=== PATIENT | female | born 1955 | race Hispanic/Latino ===

== ENCOUNTER 2018-12-01 12:24 | Emergency (ER) | payer BC, MEDICARE ==
[2018-12-01] MEDS ORDERED: TESSALON PERLE100 MG PO (13:18)
[2018-12-01 14:09] VITALS: BP 128/71
== END 2018-12-01 14:12 | disposition home or self-care (01) ==
LOC: ER 12:24
DX: R05 Cough (principal); J00 Acute nasopharyngitis [common cold]; I10 Essential (primary) hypertension; E11.9 Type 2 diabetes mellitus without complications; E78.5 Hyperlipidemia, unspecified; A80.9 Acute poliomyelitis, unspecified; K21.9 Gastro-esophageal reflux disease without esophagitis; Z86.73 Personal history of transient ischemic attack (TIA), and cerebral infarction without residual deficits
CPT/HCPCS: 99282

== ENCOUNTER 2020-03-28 17:41 | Observation (INO) | payer MEDICARE, OTHER ==
[~2020-03-28] VITALS: Ht 167.6 cm; Wt 72.6 kg
[~2020-03-28 17:41] MED LIST: TESSALON PERLE100 MG PO
[2020-03-28 18:40] LABS: BASOPHILS % 0.4 % (0.0-1.0); EOSINOPHILS # (AUTO) 0.1 (0.0-0.4); EOSINOPHILS % 0.9 % (0.0-6.0); HEMATOCRIT 41.8 % (34.2-44.1); HEMOGLOBIN 13.7 g/dL (12.0-16.0); LYMPHOCYTES # (AUTO) 2.4 (1.0-3.2); LYMPHOCYTES % 25.5 % (18.0-39.1); MEAN CORPUSCULAR HEMOGLOBIN 28.3 pg (28-32); MEAN CORPUSCULAR HGB CONC 32.8 g/dL (31-35); MEAN CORPUSCULAR VOLUME 86.4 fL (81-99); MONOCYTES # (AUTO) 0.7 (0.2-0.8); MONOCYTES % 6.9 % (4.4-11.3); NEUTROPHILS # (AUTO) 6.3 (2.1-6.9); NEUTROPHILS % 65.8 % (38.7-80.0); PLATELET COUNT 409 x10e3/uL (140-360); RED BLOOD COUNT 4.84 x10e6/uL (3.6-5.1); RED CELL DISTRIBUTION WIDTH 13.2 % (11.7-14.4)
[2020-03-28 18:48] LABS: INR 0.83; PROTHROMBIN TIME 11.9 seconds (11.9-14.5)
[2020-03-28 18:49] LABS: PARTIAL THROMBOPLASTIN TIME 26.8 seconds (23.8-35.5)
[2020-03-28 18:56] LABS: ALANINE AMINOTRANSFERASE 19 IU/L (0-55); ALBUMIN 4.1 g/dL (3.5-5.0); ALKALINE PHOSPHATASE 96 IU/L (40-150); ANION GAP 16.7 mmol/L (8-16); BLOOD UREA NITROGEN 15 mg/dL (7-26); BUN/CREATININE RATIO 22 (6-25); CARBON DIOXIDE 25 mmol/L (22-29); CHLORIDE 100 mmol/L (98-107); CREATINE KINASE 54 IU/L (29-168); CREATININE, SERUM 0.67 mg/dL (0.57-1.11); EST GLOMERULAR FILTRATION RATE > 60 ML/MIN (60-); GLUCOSE 114 mg/dL (74-118); POTASSIUM 3.7 mmol/L (3.5-5.1); SODIUM 138 mmol/L (136-145)
--- NOTE | 2020-03-28 19:31 | Emergency Department Note ---
History of Present Illnes History of Present Illness Chief Complaint: Neurological History of Present Illness This is a 65 year old female PER PT FELT WEAK AND FELL INTO HIS ARMS NO LOC WENT TO SEE PCP WHO SAID HE THINKS SHE MAY HAVE HAD A MINI STROKE AND SENT HERE FOR FURTHER EVAL STATES HER WHOLE BODY WAS WEAK DENIES FACIAL DROOP PT A&O X 3. pt and are describing a near syncope event . Historian: Patient Arrival Mode: Car Onset (how long ago): hour(s) (12) Location: all over Quality: almost passed out Radiation: Reports non-radiation Severity: moderate Onset quality: sudden Duration (how long): hour(s) (12) Progression: resolved Chronicity: new Context: Denies recent illness Relieving factors: none Exacerbating factors: none Associated symptoms: Reports denies other symptoms Treatments prior to arrival: none Past Medical/Family History Physician Review I have reviewed the patient's past medical and family history. Any updates have been documented here. Past Medical History Recent Fever: No Clinical Suspicion of Infectio: No New/Unexplained Change in Ment: No Past Medical History: Hypertension, Diabetes, CVA, GERD, Hyperlipedemia Other Medical History: POLIO Past Surgical History: Hysterectomy Social History Smoking Cessation: Never Smoker Counseling Performed: No Alcohol Use: None Any Illegal Drug Use: No Other Last Tetanus: UNKNOWN Any Pre-Existing Lines (PICC,: No Review of Systems Review of Systems Constitutional: Reports no symptoms EENTM: Reports no symptoms Cardiovascular: Reports no symptoms Respiratory: Reports no symptoms Gastrointestinal: Reports no symptoms Genitourinary: Reports no symptoms Musculoskeletal: Reports no symptoms Integumentary: Reports no symptoms Neurological: Reports as per HPI Psychological: Reports no symptoms Endocrine: Reports no symptoms Hematological/Lymphatic: Reports no symptoms Physical Exam Related Data Allergies: Coded Allergies: No Known Allergies (Unverified , 12/01/18) Triage Vital Signs Vital Signs Date Time Temp Pulse Resp B/P (MAP) Pulse Ox O2 Delivery O2 Flow Rate FiO2 03/28/20 18:08 98.7 102 18 148/76 97 Room Air Vital signs reviewed: Yes Physical Exam CONSTITUTIONAL Constitutional: Present well-developed, Present well-nourished HENT HENT: Present normocephalic, Present atraumatic, Present oropharynx clear/moist, Present nose normal HENT L/R: Present left ext ear normal, Present right ext ear normal EYES Eyes: Reports PERRL, Reports conjunctivae normal NECK Neck: Present ROM normal PULMONARY Pulmonary: Present effort normal, Present breath sounds normal CARDIOVASCULAR Cardiovascular: Present regular rhythm, Present heart sounds normal, Present capillary refill normal, Present normal rate GASTROINTESTINAL Abdominal: Present soft, Present nontender, Present bowel sounds normal GENITOURINARY Genitourinary: Present exam deferred SKIN Skin: Present warm, Present dry MUSCULOSKELETAL Musculoskeletal: Present ROM normal NEUROLOGICAL Neurological: Present alert, Present oriented x 3, Present no gross motor or sensory deficits PSYCHOLOGICAL Psychological: Present mood/affect normal, Present judgement normal Results Laboratory Result Diagram: 03/28/20 18103/[id number]/201818 Laboratory Laboratory Tests Test 03/28/20 18:19 White Blood Count 9.52 x10e3/uL (4.8-10.8) Red Blood Count 4.84 x10e6/uL (3.6-5.1) Hemoglobin 13.7 g/dL (12.0-16.0) Hematocrit 41.8 % (34.2-44.1) Mean Corpuscular Volume 86.4 fL (81-99) Mean Corpuscular Hemoglobin 28.3 pg (28-32) Mean Corpuscular Hemoglobin Concent 32.8 g/dL (31-35) Red Cell Distribution Width 13.2 % (11.7-14.4) Platelet Count 409 x10e3/uL (140-360) Neutrophils (%) (Auto) 65.8 % (38.7-80.0) Lymphocytes (%) (Auto) 25.5 % (18.0-39.1) Monocytes (%) (Auto) 6.9 % (4.4-11.3) Eosinophils (%) (Auto) 0.9 % (0.0-6.0) Basophils (%) (Auto) 0.4 % (0.0-1.0) Neutrophils # (Auto) 6.3 (2.1-6.9) Lymphocytes # (Auto) 2.4 (1.0-3.2) Monocytes # (Auto) 0.7 (0.2-0.8) Eosinophils # (Auto) 0.1 (0.0-0.4) Basophils # (Auto) 0.0 (0.0-0.1) Absolute Immature Granulocyte (auto 0.05 x10e3/uL (0-0.1) Prothrombin Time 11.9 seconds (11.9-14.5) Prothromb Time International Ratio 0.83 Activated Partial Thromboplast Time 26.8 seconds (23.8-35.5) Sodium Level 138 mmol/L (136-145) Potassium Level 3.7 mmol/L (3.5-5.1) Chloride Level 100 mmol/L (98-107) Carbon Dioxide Level 25 mmol/L (22-29) Anion Gap 16.7 mmol/L (8-16) Blood Urea Nitrogen 15 mg/dL (7-26) Creatinine 0.67 mg/dL (0.57-1.11) Estimat Glomerular Filtration Rate > 60 ML/MIN (60-) BUN/Creatinine Ratio 22 (6-25) Glucose Level 114 mg/dL (74-118) Calcium Level 10.0 mg/dL (8.4-10.2) Total Bilirubin 0.5 mg/dL (0.2-1.2) Aspartate Amino Transf (AST/SGOT) 15 IU/L (5-34) Alanine Aminotransferase (ALT/SGPT) 19 IU/L (0-55) Alkaline Phosphatase 96 IU/L (40-150) Creatine Kinase 54 IU/L (29-168) Creatine Kinase MB 0.40 ng/mL (0-5.0) Troponin I 0.002 ng/mL (0-0.300) Total Protein 8.3 g/dL (6.5-8.1) Albumin 4.1 g/dL (3.5-5.0) Globulin 4.2 g/dL (2.3-3.5) Albumin/Globulin Ratio 1.0 (0.8-2.0) Laboratory Tests Test 03/28/20 18:19 White Blood Count 9.52 x10e3/uL (4.8-10.8) Red Blood Count 4.84 x10e6/uL (3.6-5.1) Hemoglobin 13.7 g/dL (12.0-16.0) Hematocrit 41.8 % (34.2-44.1) Mean Corpuscular Volume 86.4 fL (81-99) Mean Corpuscular Hemoglobin 28.3 pg (28-32) Mean Corpuscular Hemoglobin Concent 32.8 g/dL (31-35) Red Cell Distribution Width 13.2 % (11.7-14.4) Platelet Count 409 x10e3/uL (140-360) Neutrophils (%) (Auto) 65.8 % (38.7-80.0) Lymphocytes (%) (Auto) 25.5 % (18.0-39.1) Monocytes (%) (Auto) 6.9 % (4.4-11.3) Eosinophils (%) (Auto) 0.9 % (0.0-6.0) Basophils (%) (Auto) 0.4 % (0.0-1.0) Neutrophils # (Auto) 6.3 (2.1-6.9) Lymphocytes # (Auto) 2.4 (1.0-3.2) Monocytes # (Auto) 0.7 (0.2-0.8) Eosinophils # (Auto) 0.1 (0.0-0.4) Basophils # (Auto) 0.0 (0.0-0.1) Absolute Immature Granulocyte (auto 0.05 x10e3/uL (0-0.1) Prothrombin Time 11.9 seconds (11.9-14.5) Prothromb Time International Ratio 0.83 Activated Partial Thromboplast Time 26.8 seconds (23.8-35.5) Sodium Level 138 mmol/L (136-145) Potassium Level 3.7 mmol/L (3.5-5.1) Chloride Level 100 mmol/L (98-107) Carbon Dioxide Level 25 mmol/L (22-29) Anion Gap 16.7 mmol/L (8-16) Blood Urea Nitrogen 15 mg/dL (7-26) Creatinine 0.67 mg/dL (0.57-1.11) Estimat Glomerular Filtration Rate > 60 ML/MIN (60-) BUN/Creatinine Ratio 22 (6-25) Glucose Level 114 mg/dL (74-118) Calcium Level 10.0 mg/dL (8.4-10.2) Total Bilirubin 0.5 mg/dL (0.2-1.2) Aspartate Amino Transf (AST/SGOT) 15 IU/L (5-34) Alanine Aminotransferase (ALT/SGPT) 19 IU/L (0-55) Alkaline Phosphatase 96 IU/L (40-150) Creatine Kinase 54 IU/L (29-168) Creatine Kinase MB 0.40 ng/mL (0-5.0) Troponin I 0.002 ng/mL (0-0.300) Total Protein 8.3 g/dL (6.5-8.1) Albumin 4.1 g/dL (3.5-5.0) Globulin 4.2 g/dL (2.3-3.5) Albumin/Globulin Ratio 1.0 (0.8-2.0) Lab results reviewed: Yes Imaging Imaging results reviewed: Yes Impressions Procedure: [id number] CT/CT BRAIN WO Exam Date: 03/28/20 Exam Time: 1914 REPORT STATUS: Signed History:Weakness Comparison studies: None Technique: Axial images were obtained from the skull base to the vertex. Coronal and sagittal images reconstructed from the axial data. Dose modulation, iterative reconstruction, and/or weight based adjustment of the mA/kV was utilized to reduce the radiation dose to as low as reasonably achievable. Intravenous contrast: None Findings: Scalp/skull: No abnormalities. Extra-axial spaces: No masses. No fluid collections. Brain sulci: Mildly prominent. Ventricles: Mild compensatory dilatation. No hydrocephalus. Parenchyma: Subtle hypodensities in the right frontal white matter are microvascular ischemic changes. No masses, hemorrhage, acute or chronic cortical vascular insults. Sellar/suprasellar region: No abnormalities. Craniocervical junction: Patent foramen magnum. No Chiari one malformation. Incidental findings: Subtle atherosclerotic calcifications in the carotid siphons . Impression: 1. No acute abnormalities. 2. Incidental mild right frontal white matter microvascular ischemic changes. Signed by: Dr. Ata Hdz M.D. on 03/28/2020 8:01 PM CXR I REVIEWED NO ACUTE ABNORMALITY Procedures 12 Lead ECG Interpretation ECG Interpretation : ECG: ECG 1 Manager Portable: Interpreted by ED physician Date: Mar 28, 2020 Time: 19:00 Rhythm: sinus rhythm Rate: normal BPM: 87 QRS axis: normal ST segments normal: Yes T waves normal: Yes Clinical Impression: non-specific ECG Additional Comments low voltage qrs Assessment & Plan Medical Decision Making MDM pt had a near syncope event this morning cbc, cmp, cardiac enzymes, ekg, cxr, ct brain ordered to eval for myocardial infarction, arrhythmia, electrolyte abnormality, intrathoracic abnormality. I SPOKE WITH DR TAM, PL[facility] IN [facility], ORDER ECHO AND CAROTID DOPPLERS FOR AM Reassessment Reassessment time: 20:58 Reassessment PT DOING WELL, NO SYMPTOMS AT THIS TIME, I REVIEWED LABS AND RADIOLOGY RESULTS WITH PT Assessment & Plan Final Impression: (1) Near syncope Depart Disposition: ADMITTED Last Vital Signs Date Time Temp Pulse Resp B/P (MAP) Pulse Ox O2 Delivery O2 Flow Rate FiO2 03/28/20 18:45 81 16 143/76 100 03/28/20 18:08 98.7 Room Air Home Meds Active Scripts Benzonatate (TESSALON PERLE) 100 Mg Capsule, 100 MG PO TID PRN for COUGH, #30 MG Prov:CHRISTIN COLEMAN MICA MINER 12/01/18 Reported Medications Metformin Hcl (METFORMIN HCL) 500 Mg Tablet, 1000 MG PO BID, #60 TAB 03/28/20 Omeprazole (OMEPRAZOLE) 40 Mg Capsule.dr, 40 MG PO DAILY 03/28/20 Hydrochlorothiazide (HYDROCHLOROTHIAZIDE) 12.5 Mg Tablet, 1 TAB PO DAILY 03/28/20 Irbesartan (IRBESARTAN) 150 Mg Tablet, 300 MG PO DAILY, #30 TAB 03/28/20 Verapamil Hcl (VERAPAMIL ER) 120 Mg Cap24h.pel, 120 MG PO BID 03/28/20 ASIA VARELA MD Mar 28, 2020 19:31
--- NOTE | 2020-03-28 20:05 | Diagnostic Imaging Report ---
History:Weakness Comparison studies: None Technique: Axial images were obtained from the skull base to the vertex. Coronal and sagittal images reconstructed from the axial data. Dose modulation, iterative reconstruction, and/or weight based adjustment of the mA/kV was utilized to reduce the radiation dose to as low as reasonably achievable. Intravenous contrast: None Findings: Scalp/skull: No abnormalities. Extra-axial spaces: No masses. No fluid collections. Brain sulci: Mildly prominent. Ventricles: Mild compensatory dilatation. No hydrocephalus. Parenchyma: Subtle hypodensities in the right frontal white matter are microvascular ischemic changes. No masses, hemorrhage, acute or chronic cortical vascular insults. Sellar/suprasellar region: No abnormalities. Craniocervical junction: Patent foramen magnum. No Chiari one malformation. Incidental findings: Subtle atherosclerotic calcifications in the carotid siphons . Impression: 1. No acute abnormalities. 2. Incidental mild right frontal white matter microvascular ischemic changes. Signed by: Dr. Ata Hdz M.D. on 03/28/2020 8:01 PM
[2020-03-28] MEDS ORDERED: IRBESARTAN150 MG PO (20:06)
[2020-03-28] MEDS ORDERED: VERAPAMIL ER120 MG PO (20:06)
[2020-03-28] MEDS ORDERED: HYDROCHLOROTH12.5 MG PO (20:06)
[2020-03-28] MEDS ORDERED: OMEPRAZOLE40 MG PO (20:06)
[2020-03-28] MEDS ORDERED: METFORMIN HCL500 MG PO (20:06)
--- NOTE | 2020-03-28 21:02 | Diagnostic Imaging Report ---
EXAM: CHEST SINGLE (PORTABLE), Weight-bearing AP, Oblique and Lateral views DATE: 03/28/2020 7:15 PM INDICATION: Near syncopal episode COMPARISON: None FINDINGS: Support devices: None. Lungs/pleura: No focal consolidation, pleural effusion or pneumothorax. There is bibasilar atelectasis, right more left. Cardiac and mediastinum: Within normal limits. IMPRESSION: No radiographic evidence of an acute cardiopulmonary process. The image was reviewed by Iam Guo MD. Signed by: Iam Guo MD on 03/28/2020 8:58 PM
[2020-03-28] MEDS ORDERED: SODIUM CHLORIDE FLUSH 10 ML SYR INJ PRN (21:15)
[2020-03-29] VITALS (9 sets, daily range): BP systolic 110–145; BP diastolic 68–88
[2020-03-29] MEDS ORDERED: DECARA1250 MCG PO (01:46)
[2020-03-29] MEDS ORDERED: LUMIGAN2.5 M1 OU (01:46)
--- NOTE | 2020-03-29 07:10 | NUR ---
RCD PT AT BED PT IS ALERT AND ORIENTED PT RESTING ON BED IV PATENT BY SALINE FLUSH BED LOW AND LOCKED CALL LIGHT IN REACH
[2020-03-29 07:13] LABS: CREATINE KINASE 50 IU/L (29-168)
[2020-03-29 15:00] LABS: CREATINE KINASE 71 IU/L (29-168)
--- NOTE | 2020-03-29 19:27 | NUR ---
PT RESTING ON BED BED SIDE REPORT GIVEN TO ONCOMING NURSE
[2020-03-29] MEDS ORDERED: DEXTROSE 50% SYRINGE 50 ML IV PRN (20:00)
[2020-03-29] MEDS ORDERED: BENZONATATE 100 MG CAP PO PRN (20:00)
[2020-03-29] MEDS ORDERED: HYDRALAZINE HCL 20 MG/ML VIAL IV PRN (20:15)
[2020-03-29] MEDS: SODIUM CHLORIDE 0.9% 1000ML 1,000 ML IV SCH (20:30)
[2020-03-30] VITALS (13 sets, daily range): BP systolic 97–132; BP diastolic 73–89
--- NOTE | 2020-03-30 02:38 | History and Physical ---
PRIMARY CARE DOCTOR: Monroe French MD [facility] DOCTOR: Dr. Kris Eldridge. This is coverage for Dr. Eldridge. HISTORY OF PRESENT ILLNESS: Ms. Valiente is a pleasant 65-year-old female with presyncope. The patient was feeling weak. The patient fell into 's arms. There is no loss of consciousness. The patient's PCP saw the patient, but was concerned, could not rule out a stroke; therefore, the patient was sent to the hospital. The patient remains slightly weak yesterday, but today is feeling a little bit better. The patient was admitted. EKG mostly unremarkable. Head CT unremarkable. Chest x-ray unremarkable. PAST MEDICAL HISTORY: Hypertension, diabetes, stroke, GERD, hyperlipidemia, polio. MEDICATIONS: Medication list reviewed per the chart record. ALLERGIES: NO KNOWN DRUG ALLERGIES. SOCIAL HISTORY: No smoking. No drinking. No drugs. From [place]. Good social support here in [facility]. FAMILY HISTORY: Noncontributory to this condition. REVIEW OF SYSTEMS: GENERAL: No weight changes. OPHTHALMOLOGIC: No double vision. ENT: No dry mouth. ENDOCRINE: No known thyroid disease. PULMONARY: No asthma. CARDIAC: No heart attack. GI: No constipation. : No blood in urine. DERMATOLOGIC: No rash. MUSCULOSKELETAL: No rheumatologic disorder known. PSYCHIATRIC: No depression. PHYSICAL EXAMINATION: VITAL SIGNS: Afebrile, vital signs noted and reviewed per the chart record. GENERAL: In no acute distress. Alert and calm in bed. HEENT: Normocephalic and atraumatic. NECK: Supple. Throat midline. LUNGS: Bilateral air entry, clear. CARDIOVASCULAR: S1, S2. No murmurs, rubs, or gallops. ABDOMEN: Soft and nontender. EXTREMITIES: No clubbing. No cyanosis. There is no edema. INTEGUMENT: No rash. No purpura. LABORATORY DATA: 9 white count, 409 platelets. 3.7 potassium, 0.67 creatinine. 114 glucose. Coronavirus-19 test still pending. IMPRESSION AND PLAN: 1. Presyncope. 2. History of cerebrovascular accident. 3. Diabetes. 4. Hypertension. 5. Gastroesophageal reflux disease. 6. Hyperlipidemia. 7. History of polio. Continue telemetry monitoring. Follow up echo results. Follow up ultrasound carotid report. We will get Cardiology evaluation just in case the patient has abnormal finding to expedite the workup. The patient has coronavirus-19 test that is pending at this time. We will await that result. Give supportive therapy. Thank you very much, Dr. French, for allowing Dr. Eldridge and me a chance to participate in the care of Ms. Valiente. Please call for questions. MD CESAR Garcia/KEN /[id number]
--- NOTE | 2020-03-30 07:00 | NUR ---
RCD PT AT BED PT IS ALERT AND ORIENTED PT RESTING ON BED IV PATENT BY SALINE FLUSH BED LOW AND LOCKED CALL LIGHT IN REACH
[2020-03-30] MEDS: PANTOPRAZOLE SOD 40 MG TABEC PO SCH (07:30)
[2020-03-30] MEDS: METFORMIN HCL 500 MG TAB PO SCH ×2 (08:00→17:00)
[2020-03-30] MEDS ORDERED: PANTOPRAZOLE SOD 40 MG TABEC PO SCH (09:00)
[2020-03-30] MEDS: IRBESARTAN 150 MG TAB PO SCH (09:00)
[2020-03-30] MEDS: HYDROCHLOROTHIAZIDE 25 MG TAB PO SCH (09:00)
--- NOTE | 2020-03-30 10:35 | NUR ---
AC TO FAMILY PT HAVING CLUSTROPHOBIA PAGED AND NOTIFIED DR JAUREGUI GOT NEW ORDERS
[2020-03-30] MEDS ORDERED: LORAZEPAM INJ 2 MG/ML VIAL IV NR (10:45)
--- NOTE | 2020-03-30 11:00 | NUR ---
BEFORE GOING TO MRI [place] [id number] EXPLAINED EVERYTHING TO THE PT CLAUSTROPHOBIA AND MEDICATIONS SHE SAID SHE UNDERSTOOD
--- NOTE | 2020-03-30 11:09 | NUR ---
PT WENT TO PROCEDURE IN SAFE CONDITION
--- NOTE | 2020-03-30 12:57 | Diagnostic Imaging Report ---
Examination: MRI BRAIN WO CONTRAST History: Near syncope. Possible stroke. Comparison studies: Head CT dated March 28, 2020. Technique: Sagittal T2; axial DWI, FLAIR, GRE or SWI, T1, Coronal FLAIR. Intravenous contrast: None Findings: Scalp: No abnormal signal. No masses. Bone marrow: Normal in signal intensity. Brain volume: Adequate for age. No volume loss. Ventricles: Normal in size and configuration. No hydrocephalus. Extra-axial spaces: No abnormalities. Parenchyma: There are patchy areas of T2/FLAIR hyperintensity in the right periventricular white matter, nonspecific. No masses, hemorrhage, or acute vascular insults. Suprasellar and sellar region: No abnormalities. Craniocervical junction: No abnormalities. The foramen magnum is patent. No Chiari malformations. Vessels: Normal flow-voids in the arteries and sinuses. Additional findings:None. IMPRESSION: No acute intracranial abnormalities. Mild chronic microvascular ischemic change, Signed by: Dr. Laisha Maharaj M.D. on 03/30/2020 12:53 PM
[2020-03-30] MEDS: SODIUM CHLORIDE 0.9% 1000ML 1,000 ML IV SCH (14:30)
--- NOTE | 2020-03-30 18:05 | Consultation ---
DATE OF CONSULTATION: 03/30/2020 Cardiology Consultation CONSULTING PHYSICIAN: Sal Moses MD, Interventional Cardiology. REASON FOR CONSULTATION: Presyncope. HISTORY OF PRESENT ILLNESS: Ms. Valiente is a 65-year-old woman with history of hypertension and diabetes mellitus, who presents with complaints of lightheadedness after standing up, occurring several occasions this week. Episodes became more severe with family member having to assist the patient down to lying position. She did not lose consciousness. Report headaches, palpitations, chest pain, shortness of breath, or other complaints at that time. She denies any fever, cough, or lower extremity edema. She denies any exercise related symptoms. REVIEW OF SYSTEMS: A 12-system review negative except for as noted above. PAST MEDICAL HISTORY: As per HPI. SOCIAL HISTORY: Negative for smoking, alcohol, or drugs. FAMILY HISTORY: Noncontributory. PHYSICAL EXAMINATION: VITAL SIGNS: Temperature 98.1, heart rate 91, blood pressure 112/76 with orthostatic vital signs taken with 16 mmHg, drop in systolic blood pressure from lying to standing position with increase in heart rate, respiratory rate 18, O2 saturation 98%. BMI 25.8. GENERAL: In no acute distress, alert. NECK: No JVD. CHEST: Clear to auscultation. CARDIOVASCULAR: Regular rate and rhythm. Normal S1, S2. No S3. No S4. No murmurs, no rubs. ABDOMEN: Soft. Bowel sounds positive. EXTREMITIES: No edema. CARDIOVASCULAR MEDICATION: Reviewed. Hydrochlorothiazide 12.5 mg daily, irbesartan 300 mg daily, hydralazine p.r.n. STUDIES: Reviewed. Creatinine 0.6, sodium 138. White blood cells 9.5, hemoglobin 13.7, platelets 409. INR 0.8. Negative troponins. Telemetry reviewed, normal sinus rhythm and sinus tachycardia. No arrhythmias or pauses. Echocardiogram reviewed with preserved left ventricular systolic function. No significant valvular abnormalities. Carotid ultrasound without significant stenosis. ASSESSMENT: A 65-year-old woman presents with presyncope in the setting of hypovolemia, possibly orthostatics. 1. Hypertension. 2. Diabetes. RECOMMENDATIONS: 1. IV fluids. 2. Recheck orthostatics, following completion of hydration protocol. 3. Keep on telemetry while in-house. 4. Discontinue hydrochlorothiazide and established holding parameters for blood pressure medications upon discharge. 5. Outpatient followup in 2 to 4 weeks post discharge. 6. I thank you for the opportunity to participate in the care of this patient. Please call with any questions. MD FORREST Ellison/MODJoan /[id number]
--- NOTE | 2020-03-30 18:45 | NUR ---
PT RESTING ON BED BED SIDE REPORT GIVEN TO ONCOMING NURSE
--- NOTE | 2020-03-30 20:58 | NUR ---
RECIVENE PT IN BED AOX3 ,NO ACUTE DISTRESS NOTED ,PT WAS GETING NS AT 200CC/HR ,DR HERNANDEZ ORDERD TO D/C PT IF ORTHO STATIN BP IS OK WHEN BAG OF NS FINISHED CHECKED THE ORTHO STATIC B/P .NOTIFIED DR HERNANDEZ .DR LOPEZ TOLD TO NOT D/C TONIGHT CONTINUE THE FLUID BECAUSE ORTHOSTATIC B/P DROPPED .CHECK IN THE MORNING IF IT OK D/C TOMORROW PT PT RESTING.CHARGING CAR OPERATOR EXPLAINED TO HER .CONTINUE TO MONITOR CALL LIGHT WITH IN REACH
--- NOTE | 2020-03-30 22:00 | NUR ---
NOTIFIED JUVENTINO THAT PT HAS DROP IN THE ORTHOSTATIC B/P AND DR WEST WANTS TO CONTINUE NS AND CHECK THE ORTHO STATIC B/P AND IF OK THEN DISCHARGE PT CONTINUE TO MONITOR.
[2020-03-31] VITALS: BP 126/75
--- NOTE | 2020-03-31 00:15 | NUR ---
INTERNAL MEDICINE PROGRESS NOTE coverage for : MD Dr. Kris Yates. DATE OF ENCOUNTER: 03/30/20 SUBJECTIVE: Echo with 60-65% lvef, unremarkable carotid us - open bilaterally, no stenosis significant telemetry unremarkable brain MRI no acute changes significant orthostatic hypotension found, not relieved after initial IVF. therefore patient getting more IVF and wasnt discharged this pm REVIEW OF SYSTEMS: no bleeding, no rash PHYSICAL EXAMINATION: VITAL SIGNS: vital signs noted and reviewed per the chart record. GENERAL: no acute distress. Alert and calm in bed. HEENT: Normocephalic and atraumatic. NECK: Supple. Throat midline. LUNGS: Bilateral air entry, clear. CARDIOVASCULAR: S1, S2. No murmurs, rubs, or gallops. ABDOMEN: Soft and nontender. EXTREMITIES: No clubbing. No cyanosis. no edema. INTEGUMENT: No rash. No purpura. LABORATORY DATA: no new updates Coronavirus-19 test still pending. IMPRESSION AND PLAN: 1. Presyncope. Likely due to significant orthostatic hypotension. 2. Hx cerebrovascular accident. 3. Diabetes. 4. Hypertension. 5. Gastroesophageal reflux disease. 6. Hyperlipidemia. 7. History of polio. Continue telemetry Appreciate cardiology evaluation Increase IVF to 200 cc/hr, recheck orthostatics follow coronavirus-19 test that is pending Ambulate tomorrow, consider stockings vs medications by tomorrow Give supportive therapy. Thank you very much, Dr. French, for allowing Dr. Eldridge and me a chance to participate in the care of Ms. Valiente. Please call for questions.
[2020-03-31] MEDS: SODIUM CHLORIDE 0.9% 1000ML 1,000 ML IV SCH (00:30)
[2020-03-31 04:00] VITALS: BP_SYST 104; BP_SYST 111; BP_SYST 126; BP_DIAS 78; BP_DIAS 96
--- NOTE | 2020-03-31 07:00 | NUR ---
RCD PT AT BED PT IS ALERT AND ORIENTED PT RESTING ON BED IV PATENT BY SALINE FLUSH BED LOW AND LOCKED CALL LIGHT IN REACH
[2020-03-31] MEDS: PANTOPRAZOLE SOD 40 MG TABEC PO SCH (07:30)
[2020-03-31 08:20] VITALS: BP 130/72
[2020-03-31 08:22] VITALS: BP 118/71
[2020-03-31 08:23] VITALS: BP 114/71
[2020-03-31 08:57] VITALS: BP 130/72
[2020-03-31] MEDS: IRBESARTAN 150 MG TAB PO SCH (09:00)
[2020-03-31] MEDS: HYDROCHLOROTHIAZIDE 25 MG TAB PO SCH (09:00)
[2020-03-31] MEDS: METFORMIN HCL 500 MG TAB PO SCH (09:03)
--- NOTE | 2020-03-31 09:40 | NUR ---
DISCHARGE INSTRUCTIONS GIVEN BY MARINE [place] [id number] ,SHE EXPLAINED STOPPED MEDICATIONS AND FOLLOW UP WITH PCP AFTER ONE WEEK PT SAID SHE UNDERSTOOD EVERYTHING
--- NOTE | 2020-03-31 10:24 | NUR ---
PT WENT HOME IN SAFE CONDITION WITH HER SON
--- NOTE | 2020-03-31 23:30 | NUR ---
Discharge summary [id number]
--- NOTE | 2020-04-01 03:56 | Discharge Summary ---
PRIMARY CARE DOCTOR: Monroe French MD. [facility] DOCTOR: Dr. Kris Eldridge. PRIMARY DIAGNOSIS: Presyncope, apparently due to orthostasis/postural hypotension. SECONDARY DIAGNOSES: 1. Hypertension. 2. Diabetes. 3. History of stroke. 4. GERD. 5. Hyperlipidemia. 6. ? Polio. HOSPITAL COURSE: Rocco was admitted after being sent by her primary care doctor with presyncope and significant weakness. The patient did not lose consciousness. EKG was mostly unremarkable. Head CT was unremarkable. Chest x-ray was with clear lungs. The patient had telemetry, which was unremarkable. The patient with echo with 60% to 65% LVEF, otherwise unremarkable. Carotid ultrasounds without significant stenosis. Brain MRI was done with no acute changes. On orthostatic measurements, there was significant change. The patient received some IV fluids and after initial refractoriness, the patient finally had improvement in the postural blood pressure changes. The patient was recommended by the field tax auditor to stop the hydrochlorothiazide, but additionally we at discharge also stopped another blood pressure medicine, which could be retitrated upwards, which was verapamil. MEDICATION AT DISCHARGE: Please see discharge medication record for details. DIET AT DISCHARGE: Diabetic, cardiac diet. ACTIVITY: Fall precautions, light duty with postural changes, otherwise as tolerated. APPOINTMENT FOLLOWUP: The patient to see Dr. French after discharge as well as Dr. Marcos with Cardiology for routine followup. Additional finding including shah virus being not detected on March 28, 2020. Greater than 30 minutes in direct care and coordination for discharge. MD CESAR Garcia/KEN /[id number]
== END 2020-03-31 10:26 | disposition home or self-care (01) ==
LOC: ER 18:30 → ERHOLD 21:17 → MED/SURG 03-29 00:42
PROVIDERS: ADMIT Internal Medicine; ATTEND Internal Medicine
DX: I95.1 Orthostatic hypotension (principal); I10 Essential (primary) hypertension; E11.9 Type 2 diabetes mellitus without complications; Z86.73 Personal history of transient ischemic attack (TIA), and cerebral infarction without residual deficits; E78.5 Hyperlipidemia, unspecified; K21.9 Gastro-esophageal reflux disease without esophagitis; Z11.59 Encounter for screening for other viral diseases
CPT/HCPCS: 36415 ×4; 70450; 70551; 71045; 80053; 82550 ×2; 82553 ×2; 82948 ×3; 84484 ×2; 85025; 85610; 85730; 87635; 93005; 93306; 93880; 97116; 97161; 99284; G0378 ×4; J2060; J7030 ×2; S0164 ×2; U0002

== ENCOUNTER 2020-06-17 09:05 | Emergency (ER) | payer BC, MEDICARE ==
[~2020-06-17] VITALS: Ht 167.6 cm; Wt 72.6 kg
[~2020-06-17 09:05] MED LIST changes: +DECARA1250 MCG PO; +HYDROCHLOROTH12.5 MG PO; +IRBESARTAN150 MG PO; +LUMIGAN2.5 M1 OU; +METFORMIN HCL500 MG PO; +OMEPRAZOLE40 MG PO; +VERAPAMIL ER120 MG PO
[2020-06-17] MEDS ORDERED: METFORMIN HCL1000 MG (09:21)
[2020-06-17] MEDS ORDERED: VERAPAMIL ER120 M1 (09:21)
[2020-06-17] MEDS ORDERED: OLMESARTAN-HCT1 EACH (09:21)
--- NOTE | 2020-06-17 09:26 | Emergency Department Note ---
History of Present Illnes History of Present Illness Chief Complaint: Genitourinary History of Present Illness This is a 65 year old female hx DM, HTN c/o hematuria and pelvic pain radiating to the back since 3 am. She had UTI 6 months ago . Historian: Patient, Family Member Arrival Mode: Car Beamer Hand Required: Yes Onset (how long ago): hour(s) Radiation: Reports back Severity: mild Onset quality: gradual Duration (how long): hour(s) Timing of current episode: intermittent Progression: unchanged Chronicity: new Relieving factors: none Exacerbating factors: none Associated symptoms: Reports denies other symptoms Treatments prior to arrival: none Past Medical/Family History Physician Review I have reviewed the patient's past medical and family history. Any updates have been documented here. Past Medical History Recent Fever: No Clinical Suspicion of Infectio: No New/Unexplained Change in Ment: No Past Medical History: Hypertension, Diabetes, CVA, GERD, Hyperlipedemia Other Medical History: POLIO Past Surgical History: Hysterectomy Social History Physically hurt or threatened: No Other Last Tetanus: UNKNOWN Review of Systems Review of Systems Constitutional: Reports no symptoms EENTM: Reports no symptoms Cardiovascular: Reports no symptoms Respiratory: Reports no symptoms Gastrointestinal: Reports no symptoms Genitourinary: Reports as per HPI Musculoskeletal: Reports no symptoms Integumentary: Reports no symptoms Neurological: Reports no symptoms Psychological: Reports no symptoms Endocrine: Reports no symptoms Hematological/Lymphatic: Reports no symptoms Physical Exam Related Data Allergies: Coded Allergies: No Known Allergies (Unverified , 12/01/18) Triage Vital Signs Vital Signs Date Time Temp Pulse Resp B/P (MAP) Pulse Ox O2 Delivery O2 Flow Rate FiO2 06/17/20 09:17 98.4 92 16 161/66 100 Room Air Vital signs reviewed: Yes Physical Exam CONSTITUTIONAL Constitutional: Present well-developed, Present well-nourished HENT HENT: Present normocephalic, Present atraumatic, Present oropharynx clear /moist, Present nose normal HENT L/R: Present left ext ear normal, Present right ext ear normal EYES Eyes: Reports PERRL, Reports conjunctivae normal NECK Neck: Present ROM normal PULMONARY Pulmonary: Present effort normal, Present breath sounds normal CARDIOVASCULAR Cardiovascular: Present regular rhythm, Present heart sounds normal, Present capillary refill normal, Present normal rate GASTROINTESTINAL Abdominal: Present soft, Present nontender, Present bowel sounds normal GENITOURINARY Genitourinary: Present exam deferred SKIN Skin: Present warm, Present dry MUSCULOSKELETAL Musculoskeletal: Present ROM normal NEUROLOGICAL Neurological: Present alert, Present oriented x 3, Present no gross motor or sensory deficits PSYCHOLOGICAL Psychological: Present mood/affect normal, Present judgement normal Results Laboratory Lab results reviewed: Yes Assessment & Plan Medical Decision Making MDM UTI, DOUBT kidney stone Assessment & Plan Final Impression: (1) Hematuria due to acute cystitis Depart Disposition: HOME, SELF-CARE Last Vital Signs Date Time Temp Pulse Resp B/P (MAP) Pulse Ox O2 Delivery O2 Flow Rate FiO2 06/17/20 09:17 98.4 92 16 161/66 100 Room Air Home Meds Active Scripts Benzonatate (TESSALON PERLE) 100 Mg Capsule, 100 MG PO TID PRN for COUGH, #30 MG Prov:COLEMANCHRISTIN L CARE TECHNICIAN 12/01/18 Reported Medications Bimatoprost (LUMIGAN) 2.5 Ml Drops, 2.5 ML OP, BOTTLE 06/17/20 Aspirin (ASPIRIN) 81 Mg Tab.chew, 1 TAB PO DAILY 06/17/20 Cholecalciferol (Vitamin D3) (Decara) 1,250 Mcg Capsule, 85516 UNIT PO UD 06/17/20 Olmesartan/Hydrochlorothiazide (Olmesartan-Hctz 20-12.5 mg Tab) 1 Each Tablet 06/17/20 Metformin Hcl (METFORMIN HCL) 1,000 Mg Tablet 06/17/20 Verapamil Hcl (VERAPAMIL ER) 120 Mg Tablet.er 06/17/20 Cholecalciferol (Vitamin D3) (Decara) 1,250 Mcg Capsule, 1 CAP PO WEEKLY 03/29/20 Bimatoprost (LUMIGAN) 2.5 Ml Drops, 1 DROP OU HS 03/29/20 Metformin Hcl (METFORMIN HCL) 500 Mg Tablet, 1000 MG PO BID, #60 TAB 03/28/20 Omeprazole (OMEPRAZOLE) 40 Mg Capsule.dr, 40 MG PO DAILY 03/28/20 Irbesartan (IRBESARTAN) 150 Mg Tablet, 300 MG PO DAILY, #30 TAB 03/28/20 Physician Attestation Provider Attestation Pt needs to f/u Urologist Dr Roxane Solis for cystoscopy. MARKEL DOWNEY MD Jun 17, 2020 09:26
[2020-06-17] MEDS ORDERED: DECARA1250 MCG PO (09:28)
[2020-06-17] MEDS ORDERED: LUMIGAN2.5 M1 OP (09:28)
[2020-06-17] MEDS ORDERED: ASPIRIN81 MG PO (09:28)
--- OUTSIDE RECORDS SUMMARY | 2020-06-17 09:43 | XMS REPORT | Continuity of Care Document ---
Author Author [facility] t Organization [facility] Address [address] [place] [address] Phone Unavailable Care Team Providers Care Dispensary Technician Name Role Phone NONSTAFF PCP Unavailable Briana REDDING Attphyjj Unavailable Briana REDDING Admdilma Unavailable Payers Payer Name Policy Type Policy Number Effective Date Expiration Date Jj loera [employer] [id number] 2016 00:00:00 [facility] Problems Condition Name Condition Details Condition Category Status Onset Date Resolution Date Last Treatment Date Treating Clinician Comments Source Pre-syncope Problem Active [facility] Allergies, Adverse Reactions, Alerts This patient has no known allergies or adverse reactions. Social History Social Habit Start Date Stop Date Quantity Comments Source Sex Assigned At 1955 00:00:00 1955 00:00:00 Female [facility] Medications Ordered Medication Name Filled Medication Name Start Date Stop Da te Current Medication? Ordering Clinician Indication Dosage Frequency Signature (SIG) Comments Components Source Benzonatate (Tessalon Perle) 100 Mg CAPSULE Benzonatat e (Tessalon Perle) 100 Mg CAPSULE 2018-12-01 13:18:00 Yes 100 Thre e Times A Day as needed for Cough [facility] Bimatoprost (Lumigan) 2.5 Ml DROPS Bimatoprost (Lumigan) 2.5 Ml DROPS Yes 1 Bedtime [facility] Cholecalciferol (Vitamin D3) (Decara) 1,250 Mcg CAPSUL E Cholecalciferol (Vitamin D3) (Decara) 1,250 Mcg CAPSULE Yes 1 Weekly [facility] Irbesartan Irbesartan Yes 300 Daily [facility] Metformin Hcl Metformin Hcl Yes 1000 Twice A Day [facility] Omeprazole Omeprazole Yes 40 Daily [facility] Hydrochlorothiazide Hydrochlorothiazide 2020-03-30 00:00:00 No 1 Daily [facility] Verapamil Hcl (Verapamil Er) 120 Mg CAP24H.PEL Verapam il Hcl (Verapamil Er) 120 Mg CAP24H.PEL 2020-03-30 00:00:00 No 120 Twice A Da y [facility] Vital Signs Vital Name Observation Time Observation Value Comments Source Body Temperature 2020-03-31 08:57:00 97.9 [degF] [facility] BMI (Body Mass Index) 2020-03-30 00:58:00 25.8 kg/m2 [facility] Weight 2020-03-28 18:08:00 160 [lb_av] [facility] Procedures Procedure Date / Time Performed Performing Clinician [facility] Magnetic resonance imaging of brain without contrast 2020-03-30 00:00:00 [facility] Computed tomography of brain without radiopaque contrast 2020-03 00:00:00 [facility] Plan of Care Planned Activity Planned Date Details Comments Source Instructions Syncope [facility] Encounters Start Date/Time End Date/Time Encounter Type Admission Type Attendi [facility] Care Department Encounter ID Source 2020-03-28 21:17:00 2020-03-31 10:26:00 Discharged Inpatient (obs) 1 DELORIS REDDING [facility] [id number] [facility] 2018-12-01 12:24:00 2018-12-01 12:24:00 Registered Emergency Room [facility] [id number] [facility] Results Test Description Test Time Test Comments Results Result Comments Source Capillary blood glucose measurement by glucometer (mas s/volume) 2020-03-31 07:41:00 Test Item Bedside Glucose (test code = 14056-1) 90 70-120 [facility]: [id number] 2020-03-30 12:48:00 [facility] [address] [address] Patient Name: KIM NINO I MR #: [id number] : 1955 Age/Sex: 65/F Req #: [id number] Adm Physician: DELORIS REDDING MD Ordered by: NANCY JAUREGUI MD Report #: [id number] Location: MED/SURG Room/Bed: [facility] Procedure: [id number] MRI/MRI BR AIN WO Exam Date: Exam Time: REPORT STATUS: Signed Examination: MRI BRAIN WO CONTR AST History: Near syncope. Possible stroke. Comparison studies: Head CT date d March 28, 2020. Technique: Sagittal T2; axial DWI, FLAIR, GRE or SWI, T1 , Coronal FLAIR. Intravenous contrast: None Findings: Scalp: No abno rmal signal. No masses. Bone marrow: Normal in signal intensity. Brain v olume: Adequate for age. No volume loss. Ventricles: Normal in size and confi guration. No hydrocephalus. Extra-axial spaces: No abnormalities. Parenchyma: There are patchy areas of T2/FLAIR hyperintensity in the right p eriventricular white matter, nonspecific. No masses, hemorrhage, or acute va scular insults. Suprasellar and sellar region: No abnormalities. Cranioce rvical junction: No abnormalities. The foramen magnum is patent. No Chiari mal formations. Vessels: Normal flow-voids in the arteries and sinuses. Addit ional findings:None. IMPRESSION: No acute intracranial abnormalities. Mild chronic microvascular ischemic change, Signed by: Dr. Lucy tay M.D. on 03/30/2020 12:53 PM Dictated By: LUCY Soliman 1253 Trans cribed By: CONNER on 03/30/20 1253 COPY TO: NANCY JAUREGUI MD, ABI Serum or plasma creatine kinase measurement (enzymatic activity/volume) 2020-03-29 14:02:00* Test Item Value Reference Range Interpretation Comments Creatine Kinase (test code = 2157-6) 71 29-168 [facility] creatine kinase MB measurement (mass/volume)2020-03-29 14:02:00* Test Item Value Reference Range Interpretation Comments Creatine Kinase MB (test code = 61116-2) 1.10 0-5.0 [facility]rop[facility] I measurement by highly sensitive enzyme rrvhqyehqcf2585-15-29 14:02:00* Test Item Value Reference Range Interpretation Comments Troponin I (test code = 67445-7) < 0.001 0-0.300 [facility]ne[facility] SING[facility] (PORTABLE)2020-03-28 20:56:[address] [address] Patient Name: KIM NINO I MR #: [id number] : 1955 Age/Sex: 65/F Req #: [id number] Adm Physician: Ordered by: ASIA VARELA MD Report #: [id number] Location: ER Room/Bed: Procedure: [id number] DX/CHEST SINGLE (PORTABLE) Exam Date: 03/28/20 Exam Time: 15 REPORT STATUS: Signed EXAM: CHEST SINGLE (PORTABLE), Weight-bearing AP, Oblique and Lateral views DATE: 03/28/2020 7:15 PM INDICATION: Near syncopal episode COMPARISON: None FIN DINGS: Support devices: None. Lungs/pleura: No focal consolidation, pl eural effusion or pneumothorax. There is bibasilar atelectasis, right more lef t. Cardiac and mediastinum: Within normal limits. IMPRESSION: No rad iographic evidence of an acute cardiopulmonary process. The image was revie wed by Martha Guallpa MD. Signed by: Martha Guallpa MD on 03/28/2020 8:58 PM Dictated By: MARTHA GUALLPA MD 57 Transcribed By: CONNER on 03/28/202057 COPY TO: ASIA OBANDO MD CT BRAIN [id number] 20:00:[address] [address] Patient Name: KIM NINO MR #: [id number] : 1955 Age/Sex: 65/F Req #: [id number] Adm Physician: Ordered by: OLIVA BANUELOS DO Report #: [id number] Location: ER Room/Bed: Procedure: [id number] CT/CT B RAIN Exam Date: 03/28/20 Exam Time: 1914 REPORT STATUS: Signed History:Weakness Comparison studies: None Technique: Axial images were obtained from the skull base to the vertex. Coronal and sagittal images reconstructed from the axial data. Dose modulation, iterative reconstruction, and/or weight based adjustment of the mA/kV was utilized to reduce the radiation dose to as low as reasonably achievable. Intravenous contrast: None Findings: Scalp/skull: No abnormalities. Extra-axial spaces: No masses. No fl uid collections. Brain sulci: Mildly prominent. Ventricles: Mild compensa tory dilatation. No hydrocephalus. Parenchyma: Subtle hypodensities in t he right frontal white matter are microvascular ischemic changes. No masses , hemorrhage, acute or chronic cortical vascular insults. Sellar/suprasella r region: No abnormalities. Craniocervical junction: Patent foramen magnum. N o Chiari one malformation. Incidental findings: Subtle atherosclerotic ca lcifications in the carotid siphons . Impression: 1. No acute abnorma lities. 2. Incidental mild right frontal white matter microvascular ischem ic changes. Signed by: Dr. Ata Hdz M.D. on 03/28/2020 8:01 PM Dictated By: ATA HDZ MD, MD 00 Transcribed By: CONNER on 03/28/202000 COPY TO: OLIVA BANUELOS DO Blood leukocytes automated count (number/volume)2020-03-28 18:19:00* Test Item Value Reference Range Interpretation Comments White Blood Count (test code = 6690-2) 9.52 4.8-10.8 [facility] erythrocytes automated count (number/volume)2020-03-28 18:19:00* Test Item Value Reference Range Interpretation Comments Red Blood Count (test code = 789-8) 4.84 3.6-5.1 [facility]ne[facility] hemoglobin measurement (moles/volume)2020-03-28 18:19:00* Test Item Value Reference Range Interpretation Comments Hemoglobin (test code = 39395-0) 13.7 12.0-16.0 [facility]neAutomated blood hematocrit (volume fraction)2020-03-28 18:19:00* Test Item Value Reference Range Interpretation Comments Hematocrit (test code = 4544-3) 41.8 34.2-44.1 [facility]neAutomated erythrocyte mean corpuscular fffloe5193-45-39 18:19:00* Test Item Value Reference Range Interpretation Comments Mean Corpuscular Volume (test code = 787-2) 86.4 81-99 [facility]neAutomated erythrocyte mean corpuscular hemoglobin (mass per erythrocyte)2020-03-28 18:19:00* Test Item Value Reference Range Interpretation Comments Mean Corpuscular Hemoglobin (test code = 785-6) 28.3 28-32 [facility]neAutomated erythrocyte mean corpuscular hemoglobin concentration measurement (mass/volume)2020-03-28 18:19:00* Test Item Value Reference Range Interpretation Comments Mean Corpuscular Hemoglobin Concent (test code = 786-4) 32.8 31-35 [facility] Cle[facility]neRDW [id number]-[id number] 18:19:00* Test Item Value Reference Range Interpretation Comments Red Cell Distribution Width (test code = 33507-8) 13.2 11.7 -14.4 [facility]neAutomated blood platelet count (count/volume)2020-03-28 18:19:00* Test Item Value Reference Range Interpretation Comments Platelet Count (test code = 777-3) 409 140-360 [facility] CleburneAutomated blood segmented neutrophil count as percentage of total orakusnhzx7342-24-59 18:19:00* Test Item Value Reference Range Interpretation Comments Neutrophils (%) (Auto) (test code = 14996-2) 65.8 38.7-80.0 [facility]neAutomated blood lymphocyte count as percentage ot total lmvdxdzjrx6222-38-51 18:19:00* Test Item Value Reference Range Interpretation Comments Lymphocytes (%) (Auto) (test code = 736-9) 25.5 18.0-39.1 [facility]neAutomated blood monocyte count as percentage of total smhchxofnb8617-60-29 18:19:00* Test Item Value Reference Range Interpretation Comments Monocytes (%) (Auto) (test code = 5905-5) 6.9 4.4-11.3 [facility]neAutomated blood eosinophil count as percentage of total eknqnvwyev3243-77-51 18:19:00* Test Item Value Reference Range Interpretation Comments Eosinophils (%) (Auto) (test code = 713-8) 0.9 0.0-6.0 [facility]neAutomated blood basophil count as percentage of total lgyuurqfmu6325-63-18 18:19:00* Test Item Value Reference Range Interpretation Comments Basophils (%) (Auto) (test code = 706-2) 0.4 0.0-1.0 [facility]neFluoroscopic procedure less than one hour xgsfpnki4289-01-57 18:19:00* Test Item Value Reference Range Interpretation Comments IM GRANULOCYTES % (test code = IM GRANULOCYTES %) 0.5 0.0- 1.0 [facility]neAutomated blood neutrophil count 2020-03-28 18:19:00* Test Item Value Reference Range Interpretation Comments Neutrophils # (Auto) (test code = 751-8) 6.3 2.1-6.9 [facility]neBl[facility] lymphocytes count (number/volume) 2020-03-28 18:19:00* Test Item Value Reference Range Interpretation Comments Lymphocytes # (Auto) (test code = 56882-8) 2.4 1.0-3.2 [facility]neBlworthing[facility] monocytes automated count (number/volume)2020-03-28 18:19:00* Test Item Value Reference Range Interpretation Comments Monocytes # (Auto) (test code = 742-7) 0.7 0.2-0.8 [facility]neAutomated blood eosinophil count 2020-03-28 18:19:00* Test Item Value Reference Range Interpretation Comments Eosinophils # (Auto) (test code = 711-2) 0.1 0.0-0.4 [facility]neAutomated blood basophil count (count/volume)2020-03-28 18:19:00* Test Item Value Reference Range Interpretation Comments Basophils # (Auto) (test code = 704-7) 0.0 0.0-0.1 [facility]neFluoroscopic procedure less than one hour jvdzmjlw2276-96-62 18:19:00* Test Item Value Reference Range Interpretation Comments Absolute Immature Granulocyte (auto (josue t code = Absolute Immature Granulocyte (auto) 0.05 0-0.1 [facility]neProthrombin time (PT) in platelet poor plasma by coagulation jpvzu1581-07-29 18:19:00* Test Item Value Reference Range Interpretation Comments Prothrombin Time (test code = 5902-2) 11.9 11.9-14.5 [facility]neINR in Platelet poor plasma by Coagulation lfbxz8341-32-33 18:19:00* Test Item Value Reference Range Interpretation Comments Prothromb Time International Ratio (test code = 6301-6) 0.83 Oral Anticoagulant Therapy INR Values:1. Low Intensity Therapy 1.5 - 2.02 . Moderate Intensity Therapy 2.0 - 3.03. High Intensity Therapy(1) 2.5 - 3. 54. High Intensity Therapy(2) 3.0 - 4.05. Panic Value INR > 5.0 [facility] Cle[facility]neActivated partial thromboplastin time (aPTT) in platelet poor plasma by coagulation mjjxp4501-81-63 18:19:00* Test Item Value Reference Range Interpretation Comments Activated Partial Thromboplast Time (test code = 46336-6) 26.8 23.8-35.5 [facility] sodium measurement (moles/volume)2020-03-28 18:19:00* Test Item Value Reference Range Interpretation Comments Sodium Level (test code = 2951-2) 138 136-145 [facility] plasma potassium measurement (moles/volume)2020-03-28 18:19:00* Test Item Value Reference Range Interpretation Comments Potassium Level (test code = 2823-3) 3.7 3.5-5.1 [facility] plasma chloride measurement (moles/volume)2020-03-28 18:19:00* Test Item Value Reference Range Interpretation Comments Chloride Level (test code = 2075-0) 100 98-107 [facility] or plasma carbon dioxide, total measurement (moles/volume)2020-03-28 18:19:00* Test Item Value Reference Range Interpretation Comments Carbon Dioxide Level (test code = 2028-9) 25 22-29 [facility] or plasma anion ywf2271-20-74 18:19:00* Test Item Value Reference Range Interpretation Comments Anion Gap (test code = 25066-9) 16.7 8-16 [facility] plasma urea nitrogen measurement (mass/volume)2020-03-28 18:19:00* Test Item Value Reference Range Interpretation Comments Blood Urea Nitrogen (test code = 3094-0) 15 7-26 [facility] plasma creatinine measurement (mass/volume)2020-03-28 18:19:00* Test Item Value Reference Range Interpretation Comments Creatinine (test code = 2160-0) 0.67 0.57-1.11 [facility] or plasma urea nitrogen/creatinine mass qoznf0203-56-33 18:19:00* Test Item Value Reference Range Interpretation Comments BUN/Creatinine Ratio (test code = 3097-3) 22 6- [facility]neEstimated glomerular filtration rate (GFR) quitgmdhbztqt2841-71-38 18:19:00* Test Item Value Reference Range Interpretation Comments Estimat Glomerular Filtration Rate (test code = 483253056) > 60 >60 Ranges were taken from the National Kidney Disease Education Program and the [facility] Kidney Foundation literature.Reference ranges:60 or greater: Loswpu20-04 ( for 3 consecutive months): Chronic kidney disease 15 or less: Kidney failureTexas Health Harris [facility] Hospital CleburneGlucose ytglmoxekgw9957-50-70 18:19:00* Test Item Value Reference Range Interpretation Comments Glucose Level (test code = GVM3498) 114 74-118 [facility]er[facility] or plasma calcium measurement (mass/volume)2020-03-28 18:19:00* Test Item Value Reference Range Interpretation Comments Calcium Level (test code = 87571-8) 10.0 8.4-10.2 [facility]er[facility] or plasma total bilirubin measurement (mass/volume)2020-03-28 18:19:00* Test Item Value Reference Range Interpretation Comments Total Bilirubin (test code = 1975-2) 0.5 0.2-1.2 [facility]neFluoroscopic procedure less than one hour advckitf5555-58-64 18:19:00* Test Item Value Reference Range Interpretation Comments Aspartate Amino Transf (AST/SGOT) (test code = Aspartate Amino Transf (AST/SGOT)) 15 5-34 [facility]erum or plasma alanine aminotransferase measurement (enzymatic activity/volume)2020-03-28 18:19:00* Test Item Value Reference Range Interpretation Comments Alanine Aminotransferase (ALT/SGPT) (test code = 1742-6) 19 0-55 [facility]er[facility] or plasma protein measurement (mass/volume)2020-03-28 18:19:00* Test Item Value Reference Range Interpretation Comments Total Protein (test code = 2885-2) 8.3 6.5-8.1 [facility] Hospitalerum or plasma albumin measurement (mass/volume)2020-03-28 18:19:00* Test Item Value Reference Range Interpretation Comments Albumin (test code = 1751-7) 4.1 3.5-5.0 [facility] Cle[facility]nePlasma globulin measurement (mass/volume) 2020-03-28 18:19:00* Test Item Value Reference Range Interpretation Comments Globulin (test code = 05307-8) 4.2 2.3-3.5 [facility]er[facility] or plasma albumin/globulin mass atwqh3331-58-89 18:19:00* Test Item Value Reference Range Interpretation Comments Albumin/Globulin Ratio (test code = 1759-0) 1.0 0.8-2.0 [facility]er[facility] or plasma alkaline phosphatase measurement (enzymatic activity/volume)2020-03-28 18:19:00* Test Item Value Reference Range Interpretation Comments Alkaline Phosphatase (test code = 6768-6) 96 40-150 [facility] HospitalCR [facility] BILATERAL FILI CAD DIGITAL 2019-04-10 15:54:15 - SCR MAMM BILATERAL FILI CAD DIGITALBILATERAL DIGITAL SCREENING MAMMOGRAM 3D/2D WITH CAD: 04/10/2019CLINICAL: Asymptomatic. Digital breast tomosynthesis was performed in addition to routine CC and MLO views. Current mammographic images were evaluated by either a [employer] M-Vu or a [employer] ImageChecker CAD (computer aided detection system). Comparison is made to exams dated 04/05/2018 mammogram, 03/24/2017 mammogram, and 08/25/2016 mammogram - [facility]-. There are scattered fibroglandular tissues in both breasts. There is a biopsy clip in the right breast. No suspicious mass, architectural distortion, malignant type calcification, or lymph node abnormality detected. Breast architecture is stable compared to prior exams.IMPRESSION: BENIGNThere is no mammographic evidence of malignancy. Resume annual screening mammography in one year. Wilber Venegas M.D. qn/penrad:04/10/2019 15:54:15 Power Lineworker: Samaria CHRISTINE, [facility]-FWletter sent: BIRADS 1-2 Normal Mammogram BI-RADS: 2 Benign
== END 2020-06-17 09:36 | disposition home or self-care (01) ==
LOC: FSED 09:25
DX: N30.01 Acute cystitis with hematuria (principal); I10 Essential (primary) hypertension; E11.9 Type 2 diabetes mellitus without complications; E78.5 Hyperlipidemia, unspecified; K21.9 Gastro-esophageal reflux disease without esophagitis; Z86.73 Personal history of transient ischemic attack (TIA), and cerebral infarction without residual deficits; Z86.12 Personal history of poliomyelitis
CPT/HCPCS: 81003; 87086; 99283

== ENCOUNTER 2020-12-20 17:14 | Emergency (ER) | payer BC, MEDICARE ==
[~2020-12-20] VITALS: Ht 165.1 cm; Wt 75.7 kg
[~2020-12-20 17:14] MED LIST changes: +ASPIRIN81 MG PO; +LUMIGAN2.5 M1 OP; +METFORMIN HCL1000 MG; +OLMESARTAN-HCT1 EACH; +VERAPAMIL ER120 M1
[2020-12-20] MEDS ORDERED: BENICAR20 MG PO (18:04)
[2020-12-20] MEDS ORDERED: CRESTOR10 MG PO (18:04)
[2020-12-20] MEDS ORDERED: AMOXICILLIN/CLAVULANATE K 875 MG TAB PO STA (18:47)
[2020-12-20] MEDS ORDERED: CEFDINIR300 MG PO (19:26)
== END 2020-12-20 19:40 | disposition home or self-care (01) ==
LOC: FSED 18:09
DX: R30.0 Dysuria (principal); N39.0 Urinary tract infection, site not specified; I10 Essential (primary) hypertension; E11.9 Type 2 diabetes mellitus without complications; E78.5 Hyperlipidemia, unspecified; K21.9 Gastro-esophageal reflux disease without esophagitis; Z86.73 Personal history of transient ischemic attack (TIA), and cerebral infarction without residual deficits; Z86.12 Personal history of poliomyelitis
CPT/HCPCS: 87086; 99283

== ENCOUNTER → 2023-11-17 | Day surgery (SDC) | payer BC, MEDICARE ==
[2023-11-15 15:24] LABS: BASOPHILS % 0.5 % (0.0-1.0); EOSINOPHILS # (AUTO) 0.1 (0.0-0.4); EOSINOPHILS % 0.8 % (0.0-6.0); HEMATOCRIT 40.7 % (34.2-44.1); LYMPHOCYTES # (AUTO) 2.1 (1.0-3.2); MEAN CORPUSCULAR HEMOGLOBIN 27.2 pg (28-32); MEAN CORPUSCULAR HGB CONC 31.9 g/dL (31-35); MEAN CORPUSCULAR VOLUME 85.1 fL (81-99); MONOCYTES # (AUTO) 0.6 (0.2-0.8); MONOCYTES % 6.5 % (4.4-11.3); NEUTROPHILS # (AUTO) 5.7 (2.1-6.9); PLATELET COUNT 318 x10e3/uL (140-360); RED BLOOD COUNT 4.78 x10e6/uL (3.6-5.1); RED CELL DISTRIBUTION WIDTH 16.9 % (11.7-14.4); WHITE BLOOD COUNT 8.47 x10e3/uL (4.8-10.8)
[~2023-11-17] MED LIST changes: +ATORVASTATIN CA20 MG PO; +BENICAR20 MG PO; +CALTRATE 600 W1 EACH PO; +CEFDINIR300 MG PO; +CRESTOR10 MG PO; +ELIQUIS5 MG PO; +FERROUS SULFAT324 MG PO; +LIDOCAINE HCL 2% LOCAL INJ 5 ML SDV VIAL INJ ONE; +PROPOFOL IV EMULSION 10 MG/ML 50 ML VIAL IV ONE
[2023-11-17] MEDS: LACTATED RINGER'S 1,000 ML ONE (05:48)
[2023-11-17 08:30] VITALS: TEMP 98.1
[2023-11-17 08:55] VITALS: BP 123/65; PULSE 63; RESP 16; O2SAT 98
== END | disposition home or self-care (01) ==
LOC: OR 06:21
PROVIDERS: ATTEND Internal Medicine Gastroenterology
DX: Z09 Encounter for follow-up examination after completed treatment for conditions other than malignant neoplasm (principal); D12.0 Benign neoplasm of cecum; K57.30 Diverticulosis of large intestine without perforation or abscess without bleeding; K64.8 Other hemorrhoids; K29.70 Gastritis, unspecified, without bleeding; K21.9 Gastro-esophageal reflux disease without esophagitis; D64.9 Anemia, unspecified; E11.9 Type 2 diabetes mellitus without complications; I10 Essential (primary) hypertension; I48.91 Unspecified atrial fibrillation; E78.5 Hyperlipidemia, unspecified; Z01.810 Encounter for preprocedural cardiovascular examination; Z01.812 Encounter for preprocedural laboratory examination; Z79.02 Long term (current) use of antithrombotics/antiplatelets; Z79.84 Long term (current) use of oral hypoglycemic drugs; Z86.73 Personal history of transient ischemic attack (TIA), and cerebral infarction without residual deficits
CPT/HCPCS: 36415; 45385; 85025; 93005; J2001; J2704; J7121; 45378